=== PATIENT | female | born 2000 | race Hispanic/Latino ===

== ENCOUNTER 2025-04-10 11:58 | Emergency (ER) | payer SELFPAY ==
[2025-04-10 12:11] VITALS: BP 115/62; PULSE 84; RESP 20; TEMP 36.2; O2SAT 100
--- NOTE | 2025-04-10 12:40 | ED.FEMALEGU ---
HPI - Female Genitourinary General Chief complaint: INTEGRATION SOFTWARE ENGINEER Stated complaint: vaginal itching Time Seen by Provider: 04/10/25 12:32 History of Present Illness HPI Narrative: 24-year-old female presents to the complaining of thick, pruritic, white vaginal discharge for 2 weeks. Has taken OTC medication without improvement. Denies dysuria, fever. No concerns over STI's. Related Data Allergies Allergy/AdvReac Type Severity Reaction Status Date / Time No Known Allergies Allergy Verified 04/10/25 12:11 Course Vital Signs Vital signs: Vital Signs Temperature 36.2 C L 04/10/25 12:11 Pulse Rate 84 04/10/25 12:11 Respiratory Rate 20 04/10/25 12:11 Blood Pressure 115/62 04/10/25 12:11 Pulse Oximetry 100 04/10/25 12:11 Oxygen Delivery Room Air 04/10/25 12:11 Temperature 36.2 C L 04/10/25 12:11 Pulse Rate 84 04/10/25 12:11 Respiratory Rate 20 04/10/25 12:11 Blood Pressure 115/62 04/10/25 12:11 Pulse Oximetry 100 04/10/25 12:11 Oxygen Delivery Room Air 04/10/25 12:11 MDM MDM Narrative Medical decision making narrative: In summary: 24-year-old female presents complaining of periodic vaginal discharge for 2 weeks. Will to burning sensation when urinating. Patient deferred pelvic exam. Urine showed no evidence of infection. Will plan to prophylactically treat for possible vaginal candidiasis. Vaginitis panel is pending. Will refer patient to see printer's devil. Differential Diagnosis Differential Diagnosis: Vaginal candidiasis, BV, STI, acute cystitis Lab Data Labs: Lab Results 04/10/25 04/10/25 Range/Units 12:38 12:42 Urine Color Yellow (Yellow) Urine Appearance Clear (Clear) Urine pH 7.5 (5.0-9.0) Ur Specific [place] 1.004 (1.001-1.035) Urine Protein Negative (Negative) mg/dL Urine Glucose (UA) Negative (Negative) mg/dL Urine Ketones Negative (Negative) mg/dL Ur Blood (Man) Trace (Negative) Urine Nitrate Negative (Negative) Urine Bilirubin Negative (Negative) Urine Urobilinogen 0.2 (<2.0) mg/dL Leukocyte Esterase Rfl Negative (Negative) NORRIS/UL Urine RBC 0-2 (0-2) /hpf Urine WBC 0-5 (0-3) /hpf Ur Squamous Epith Cells Moderate (Few) /hpf Urine Bacteria None seen /hpf Urine Casts 0-2 Urine Test Negative Discharge Plan Discharge Clinical Impression: Vulvovaginal candidiasis Patient Disposition: Home Condition: Stable Instructions: Antibiotic Form, Yeast Infection (ED) Patient Language: Belarusian Prescriptions: New fluconazole 200 mg tablet 200 mg PO DAILY Qty: 2 0RF Follow-up/Referrals: PHYSICIAN,LEVER TENDER [Primary Care Provider, Internal Medicine] Kit Peralta MD [Physician, GALLERY OR MUSEUM TECHNICIAN] Time of Disposition: 16:17
[2025-04-10 13:03] LABS: Pregnancy On Board Control Positive
[2025-04-10 13:05] LABS: Add Urine Microscopic? YES; Appearance Urine Clear (Clear); Glucose Urine UA Negative (Negative); Leukocyte Esterase Ur Negative LEU/UL (Negative); Nitrate Urine Negative (Negative); Non Pathogenic Casts 0-2; Specific Grav Ur 1.004 (1.001-1.035)
== END 2025-04-10 16:33 | disposition home or self-care (01) ==
PROVIDERS: Emergency Provider Nurse Practitioner Family
DX: B37.31 Acute candidiasis of vulva and vagina (principal)
CPT/HCPCS: 81001; 81025; 87798; 99283